=== PATIENT | male | born 1930 | race Caucasian/White ===

== ENCOUNTER 2017-04-19 06:45 | Day surgery (SDC) | payer MEDICARE, OTHER ==
[2017-04-17 12:24] LABS: BASOPHILS 0.4 %; BASOPHILS ABSOLUTE 0.02 10/3/uL (0.0-0.16); EOSINOPHILS 2.1 %; EOSINOPHILS ABSOLUTE 0.12 10/3/uL (0.0-0.53); HEMATOCRIT 37.8 % (40.0-51.0); HEMOGLOBIN 12.8 g/dL (13.6-17.8); IMMATURE GRANULOCYTES 0.2 %; IMMATURE GRANULOCYTES ABSOLUTE 0.01 10/3/uL (0.0-0.11); LYMPHOCYTES 21.8 %; LYMPHOCYTES ABSOLUTE 1.24 10/3/uL (0.67-4.30); MEAN CORPUS HGB CONC 33.9 g/dL (32.0-36.0); MEAN CORPUSCULAR HEMOGLOB 32.9 pg (26.0-34.0); MEAN CORPUSCULAR VOLUME 97.2 fL (80-100); MEAN PLATELET VOLUME 10.1 fL (9.2-13.0); MONOCYTES 11.3 %; MONOCYTES ABSOLUTE 0.64 10/3/uL (0.21-1.20); NEUTROPHILS 64.2 %; NEUTROPHILS ABSOLUTE 3.65 10/3/uL (2.02-8.40); PLATELET COUNT 136 10/3/uL (150-400); RBC DISTRIBUTION WIDTH 13.7 % (12.0-16.0); RED CELL COUNT 3.89 10/6/uL (4.7-6.1); WHITE BLOOD CELLS 5.7 10/3/uL (4.5-10.5)
[2017-04-17 12:25] LABS: MANUAL DIFF NO %
[2017-04-17 12:43] LABS: A/G RATIO 1.5 (0.7-1.9); ALBUMIN 3.6 G/DL (3.5-5.0); ALKALINE PHOSPHATASE 58 U/L (45-117); BUN (BLOOD UREA NITROGEN) 22 MG/DL (6-23); CALCIUM, SERUM 8.4 MG/DL (8.5-10.4); CHLORIDE, SERUM 110 MMOL/L (96-112); CO2 (CARBON DIOXIDE) 32 MMOL/L (24-34); CREATININE 0.93 MG/DL (0.70-1.30); GFR AFRICAN AMERICAN 85 ML/MIN (>=60); GFR NON AFRICAN AMERICAN 73 ML/MIN (>=60); GLOBULIN 2.4 G/DL (2.5-4.1); GLUCOSE, SERUM 92 MG/DL (60-99); POTASSIUM, SERUM 4.4 MMOL/L (3.5-5.3); SGOT(AST) 22 U/L (5-40); SGPT(ALT) 23 U/L (5-65); SODIUM, SERUM 144 MMOL/L (135-148); TOTAL BILIRUBIN 0.4 MG/DL (0-1.2)
--- NOTE | ~2017-04-19 | HP ---
History And Physical [id number] [place]. [address] NAME: ANNA BURNS : [birth year] STATUS : REG [facility] PAT#: [id number] AGE: 86 ADM/REG DATE : 04/19/17 MR#: [id number] REPORT SERV DATE: 04/19/17 DICTATED BY: TONIA GREENFIELD III DATE: 04/19/17 REPORT STATUS : Draft TRANSCRIBED BY: MODL DATE: 04/19/17 DATE OF ADMISSION: 04/19/2017 HISTORY OF PRESENT ILLNESS: The patient comes to the operating room for removal of the left subclavian Port-A-Cath. The patient has a left subclavian Port-A-Cath which has been present for about 10 years. It was placed for multiple myeloma. The patient considered to be in remission regarding his myeloma and the Port-A-Cath is no longer needed. He comes now for removal of his Port-A-Cath. PAST MEDICAL HISTORY: 1. History of stage I multiple myeloma, in remission after treatment. 2. History of dementia. 3. History of coronary artery disease. 4. History of coronary artery stent placement. MEDICATIONS: As per medication list. SOCIAL HISTORY: The patient is . He lives locally. PHYSICAL EXAMINATION: GENERAL: This is a male, in no acute distress. He is alert and oriented, but not completely understanding regarding his situation, clearly does have dementia. HEENT: Unremarkable. LUNGS: Clear. CARDIAC: Normal. ABDOMEN: Soft and nontender. The left infraclavicular area has a subclavian Port-A-Cath. EXTREMITIES: Normal. ASSESSMENT: 1. 86-year-old male with Port-A-Cath, with need for removal. 2. History of multiple myeloma, in remission. 3. History of dementia. PLAN: The patient comes to the operating room for removal of his subclavian Port-A-Cath. This procedure, the risks, benefits, and alternatives, including but not limited to the risk for bleeding, infection, air embolus, pericardial tamponade, dislodgement of the Port-A-Cath tubing requiring extraction, and unforeseen complications including deep venous thrombosis, pulmonary embolus, myocardial infarction, stroke, pneumonia, and have been explained to the patient and prior to the surgery. Their questions have been answered. They understood the risks and agreed to the surgery as planned. History And Physical [address] [place] [address] NAME: ANNA BURNS : [birth year] STATUS : REG [facility]#: [id number] AGE: 86 ADM/REG DATE : 04/19/17 MR#: [id number] REPORT SERV DATE: 04/19/17 DICTATED BY: TONIA GREENFIELD III DATE: 04/19/17 REPORT STATUS : Draft TRANSCRIBED BY: PERCY DATE: 04/19/17 Brody/PERCY Tonia Greenfield III, M.D. / [id number] CC: Chhaya Bond III, M.D.
--- NOTE | ~2017-04-19 | OP ---
Record Of Operation [facility] [address] [place]. [address] NAME: ANNA BURNS : [birth year] STATUS : [facility]#: [id number] AGE: 86 ADM/REG DATE : 04/19/17 MR#: [id number] REPORT SERV DATE: 04/19/17 DICTATED BY: TONIA GREENFIELD III DATE: 04/19/17 REPORT STATUS : Draft TRANSCRIBED BY: MODL DATE: 04/19/17 DATE OF PROCEDURE: 04/19/2017 PREOPERATIVE DIAGNOSIS: History of multiple myeloma, with need for removal of left subclavian vein Port-A-Cath. POSTOPERATIVE DIAGNOSIS: History of multiple myeloma, with need for removal of left subclavian vein Port-A-Cath. PROCEDURE: Removal of left subclavian vein Port-A-Cath. ANESTHESIA: General with intubation. COMPLICATIONS: None. ESTIMATED BLOOD LOSS: Less than 5 mL. SPECIMENS: Port-A-Cath for identification. DRAINS: None. LAP AND SPONGE COUNT: Correct x3. BRIEF HISTORY: This 86-year-old male has a remote history of multiple myeloma. He has been in remission for years and was felt that removal of this Port-A-Cath, which is not being used was indicated. This procedure, the risks, benefits, and alternatives, including not limited to the risk for bleeding, infection, air embolus, pericardial tamponade, dislodgement of tubing requiring extraction, and unforeseen complications including deep venous thrombosis, pulmonary embolus, myocardial infarction, stroke, pneumonia, and , were fully explained to the patient prior to surgery and his family (the patient himself has severe dementia and not able fully comprehend). Their questions were answered. They understood the risks and agreed to surgery as planned. DESCRIPTION OF PROCEDURE: After being properly identified and after discussing risks of surgery with the patient and family again in the preoperative area, he was taken to the operating room and placed in the supine position on the operating room table. General anesthesia was administered. He was intubated without difficulty. The upper chest and neck areas were prepped and draped sterilely in usual fashion. After an appropriate "time-out" per JCAHO standards, a small transverse incision was made directly over the Port-A-Cath in the left infraclavicular area, over the previous incision. The incision was continued through the subcutaneous tissue. Hemostasis was controlled with cautery. The capsule around the Port-A-Cath was opened. The sutures holding the Port-A-Cath in place were divided. The Port-A-Cath housing and tubing were removed. The entire tubing was removed completely. The exit site of the tubing from the subcutaneous tissue was closed with a 3-0 Vicryl suture. Hemostasis was assured. The subcutaneous tissue was closed with running 3-0 Vicryl suture. The skin was closed with running subcuticular 4-0 Monocryl stitch. The Record Of Operation [facility] [address] [place]. [address] NAME: ANNA BURNS : [birth year] STATUS : [facility]#: [id number] AGE: 86 ADM/REG DATE : 04/19/17 MR#: [id number] REPORT SERV DATE: 04/19/17 DICTATED BY: TONIA GREENFIELD III DATE: 04/19/17 REPORT STATUS : Draft TRANSCRIBED BY: PERCY DATE: 04/19/17 incision was injected with 0.5% Marcaine. Dressings were applied. Anesthesia was reversed, and the patient was taken to the recovery room in stable condition. He tolerated the procedure well. His family was informed results of surgery. The patient was discharged in stable and comfortable. His family was advised to keep the wound clean and dry for [address] He should not drive for two to three days after surgery or avoid using narcotics, and that he should resume his usual medications. He was asked to return in two weeks for followup or sooner if any fever, chills, wound drainage, or other problems prior to that time. He was given a prescription for Percocet 7.5 one t.i.d., #12, as needed for pain, which he was advised not to use while driving or with other narcotics. JONATHAN/PERCY Tonia Greenfield III, M.D. / [id number] CC: Chhaya Bond III, M.D.
[~2017-04-19 06:45] MED LIST: ALEVE220 MG PO; ALLEGRA180 PO; ASAB PO; ATV1 PO; CELEXA10 PO; CELEXA20 PO; CO Q-10200 MG PO; CRESTOR20 MG PO; DEPAK250ER PO; DEX4 PO; EXELON1 EACH TOP; EXELON4.6T PO; EXELON4.6T TD; MULTIVIT/MIN PO; NAMENDA10 MG PO; NAMENXR28 PO; PR25 PO; PRILOSEC40 MG PO; RAZAER8 PO; REVLIMID15 MG PO; VESICARE5 PO; ZANTAC150 MG PO
== END 2017-04-19 11:46 | disposition home or self-care (01) ==
LOC: SDC 06:45
PROVIDERS: Surgery
PROC: 00P Central Nervous System and Cranial Nerves, Removal (ICD-10-PCS; principal; 2017-04-19 08:00)
DX: Z45.2 Encounter for adjustment and management of vascular access device (principal); I25.10 Atherosclerotic heart disease of native coronary artery without angina pectoris; G30.9 Alzheimer's disease, unspecified; F03.90 Unspecified dementia, unspecified severity, without behavioral disturbance, psychotic disturbance, mood disturbance, and anxiety; M81.0 Age-related osteoporosis without current pathological fracture; E78.00 Pure hypercholesterolemia, unspecified; K21.9 Gastro-esophageal reflux disease without esophagitis; F41.9 Anxiety disorder, unspecified; Z98.890 Other specified postprocedural states; Z95.1 Presence of aortocoronary bypass graft; Z88.0 Allergy status to penicillin; Z79.82 Long term (current) use of aspirin; Z79.899 Other long term (current) drug therapy; Z87.891 Personal history of nicotine dependence; Z96.1 Presence of intraocular lens
CPT/HCPCS: 80053; 85025; 88300; 93005; J0690